=== PATIENT | male | born 1970 | race Caucasian/White ===

== ENCOUNTER 2016-12-04 10:26 | Emergency (ER) | payer SELFPAY ==
[~2016-12-04] VITALS: Ht 177.8 cm; Wt 72.7 kg
[~2016-12-04 10:26] MED LIST: CHLO25CA PO; LORTA5 PO; RANI150 PO; Z.0.NO CURRENT MEDS
[2016-12-04 10:31] VITALS: BP 135/75; PULSE 71; RESP 15; TEMP 98.2; O2SAT 98
--- NOTE | 2016-12-04 13:22 | RADHPO ---
EXAM DATE/TIME: 12/04/2016 12:56 [place] COMPARISON: No previous studies available for comparison. INDICATIONS : Hand pain. MEDICAL HISTORY : None. SURGICAL HISTORY : None. ENCOUNTER: Initial ACUITY: 1 week PAIN SCORE: 2/10 LOCATION: Left 4th digit FINDINGS: 3 views of the left hand fourth digit demonstrate no fracture or dislocation. Mineralization is withi n normal limits. There is a 6 mm sclerotic area along the lateral aspect of the fourth digit proximal phalanx. There is a similar-appearing area of sclerosis in the second digit distal phalanx. No soft tissue abnormality or radiopaque foreign body is identified. CONCLUSION: No acute left hand abnormality is identified. No radiopaque foreign body is seen. There are nonspecif ic but benign appearing areas of sclerosis in the first digit and fourth digit. Blanco Grossman MD on December 04, 2016 at 13:19 Board Certified Radiologist. This report was verified electronically.
[2016-12-04] MEDS ORDERED: CLIN1CAP6 PO (13:28)
--- NOTE | 2016-12-04 13:29 | PD ---
HPI Chief Complaint: Foreign Body Time Seen by Provider: 11:20 Travel History International Travel<30 days: No Contact w/Intl Traveler<30days: No Traveled to known affect area: No History of Present Illness HPI 46-year-old male presents emergency Department with chief complaint of left ring finger pain and swelling for 3 weeks. He reports that apparently 3 weeks ago he was building a fence and felt something sharp potentially poked his finger. He does not recall a specific wound. He reports that since that time the finger has become increasingly more painful and swollen. He has not had it evaluated until today. He has full range of motion of the finger. Although full extension is painful. The extremity is neurovascularly intact. There is no area of fluctuance. Patient denies fever, chills, nausea or vomiting. PFSH Past Medical History Medical History: Denies Significant Hx Diminished Hearing: No ?: Not Past Surgical History Cholecystectomy: Yes (JUL 2010) Oral Surgery: Yes (2009--- [employer]) Tonsillectomy: Yes Other Surgery: Yes Social History Alcohol Use: No (DENIES) Tobacco Use: Yes (1PPD) Substance Use: No (DENIES) Allergies-Medications (Allergen,Severity, Reaction): Coded Allergies: No Known Allergies (Verified , 12/04/16) Reported Meds & Prescriptions Reported Meds & Active Scripts Active Clindamycin (Clindamycin HCl) 300 Mg Cap 300 Mg PO Q6H Review of Systems Except as stated in HPI: all other systems reviewed are Neg Physical Exam Narrative GENERAL: Well-nourished, well-developed patient. SKIN: Focused skin assessment warm/dry. Mild erythema to the left ring finger on both the dorsal and volar aspect. HEAD: Normocephalic. EYES: No scleral icterus. No injection or drainage. NECK: Supple, trachea midline. No JVD or lymphadenopathy. CARDIOVASCULAR: Regular rate and rhythm without murmurs, gallops, or rubs. RESPIRATORY: Breath sounds equal bilaterally. No accessory muscle use. GASTROINTESTINAL: Abdomen soft, non-tender, nondistended. MUSCULOSKELETAL: No cyanosis. Left ring finger has moderate swelling and mild erythema to the dorsal and volar aspect. There is no area of fluctuance. Patient has full range of motion of the digit. BACK: Nontender without obvious deformity. No CVA tenderness. Data Data Last Documented VS Vital Signs Date Time Temp Pulse Resp B/P Pulse Ox O2 Delivery O2 Flow Rate FiO2 12/04/16 10:31 98.2 71 15 135/75 98 Orders Finger (Asi6iot) (12/04/16 ) Splint Or Brace Apply/Monitor (12/04/16 13:32) Finger Splint (12/04/16 ) MDM Medical Decision Making Medical Screen Exam Complete: Yes Emergency Medical Condition: Yes Medical Record Reviewed: Yes Differential Diagnosis Possible Retained foreign body, cellulitis of the finger, infectious tenosynovitis Narrative Course 46-year-old male presents emergency department for evaluation of left ring finger pain and swelling for 3 weeks. He reports that he possibly has a retained splinter. The digit is moderately swollen but only mildly arithmetic. There is no area of fluctuance. He has full range of motion with only mild pain with extension. Infectious tenosynovitis was considered but does not appear clinically. X-ray taken of the hand ruled out fracture and no radiopaque foreign body. Patient will be placed on clindamycin and instructed to follow-up in 2 days. Patient agrees to this plan Diagnosis Primary Impression: Cellulitis Qualified Code: L03.012 - Cellulitis of finger of left hand Referrals: Ry Plummer MD Patient Instructions: Cellulitis (ED), General Instructions Scripts Clindamycin 300 Mg Fel958 Mg PO Q6H #40 CAP Ref 0 Prov:Cristy Nam 12/04/16 Disposition: 01 DISCHARGE HOME Condition: Stable Cristy Nam December 04, 2016 13:29
== END 2016-12-04 13:38 | disposition home or self-care (01) ==
LOC: PHEFT 10:26
DX: L03.012 Cellulitis of left finger (principal); F17.200 Nicotine dependence, unspecified, uncomplicated
CPT/HCPCS: 29130; 73140

== ENCOUNTER 2018-03-26 13:15 | Inpatient (IN) ==
[2018-03-26] MEDS ORDERED: Morphine Inj 4 MG/ML Vial ONE (13:19)
[2018-03-26] MEDS ORDERED: Propofol 1000 mg/100 ml Inj 1,000 MG/100 ML BOTTLE ONE (13:22)
[2018-03-26 13:38] LABS: Baso % (Auto) 0.5 % (0.0-2.0); Eos # (Auto) 0.1 th/mm3 (0.0-0.4); Eos % (Auto) 1.2 % (0.0-4.0); Hematocrit 42.3 % (39.0-51.0); Lymph % (Auto) 38.4 % (9.0-44.0); Mean Corpuscular HGB Conc 33.1 % (32.0-36.0); Mean Corpuscular Hemoglobin 31.3 pg (27.0-34.0); Mean Corpuscular Volume 94.5 fL (80.0-100.0); Mean Platelet Volume 7.3 fL (7.0-11.0); Mono # (Auto) 0.5 th/mm3 (0.0-0.9); Mono % (Auto) 6.6 % (0.0-8.0); Neut # (Auto) 4.1 th/mm3 (1.8-7.7); Neut % (Auto) 53.3 % (16.0-70.0); Platelet Count 316 th/mm3 (150-450); Red Blood Count 4.48 mil/mm3 (4.50-5.90); White Blood Count 7.7 th/mm3 (4.0-11.0)
--- NOTE | 2018-03-26 13:53 | ED ---
HPI General Chief Complaint: Fall Stated Complaint: TRAUMA ALERT Time Seen by Provider: 03/26/18 13:48 Source: patient and EMS Mode of arrival: EMS Limitations: no limitations History of Present Illness HPI narrative: 48-year-old adult male brought in as a trauma alert after fall from 15-20 feet up on a ladder climbing tree to cut down some branches. No known LOC. Pelvis right hip left wrist pain. Moving all extremities. Pain is severe, constant, nonradiating. No relief with 6 mg of IV morphine. Related Data Home Medications Medication Instructions Recorded Confirmed No Known Home Medications 03/26/18 03/26/18 Allergies Allergy/AdvReac Type Severity Reaction Status Date / Time No Allergy Information Allergy Verified 03/26/18 14:55 Available Review of Systems ROS: all other systems reviewed are negative REPLACED BY [facility] Social History Social History Recent Travel in [facility] within the Last 8 Weeks: No Recent Out of Country Travel within the Last 8 Weeks: No Exam Narrative Exam Narrative: GENERAL: Adult male, full spinal mobilization. SKIN: Focused skin assessment warm/dry. HEAD: Atraumatic. Normocephalic. EYES: Pupils equal and round. No scleral icterus. No injection or drainage. ENT: No nasal bleeding or discharge. Mucous membranes pink and moist. NECK: Trachea midline. Cervical collar in place. No obvious injuries. CARDIOVASCULAR: Regular rate and rhythm. No murmur appreciated. RESPIRATORY: No accessory muscle use. Clear to auscultation. Breath sounds equal bilaterally. GASTROINTESTINAL: Abdomen soft, non-tender, nondistended. Hepatic and splenic margins not palpable. MUSCULOSKELETAL: Obvious deformity of the left wrist. Pain and tenderness on the pubic symphysis, and apparent instability with inward pressure of the pelvis. NEUROLOGICAL: Awake and alert. No obvious cranial nerve deficits. Motor grossly within normal limits. Normal speech. PSYCHIATRIC: Appropriate mood and affect; insight and judgment normal. Course Initial Documented Vital Signs Temperature 98.2 F 03/26/18 14:20 Pulse Rate 72 03/26/18 14:20 Respiratory Rate 18 03/26/18 14:20 Blood Pressure 124/72 03/26/18 14:20 Pulse Oximetry 96 03/26/18 14:20 Last Documented Vital Signs Temperature 98.2 F 03/26/18 14:20 Pulse Rate 72 03/26/18 14:20 Respiratory Rate 18 03/26/18 14:20 Blood Pressure 124/72 03/26/18 14:20 Pulse Oximetry 98 03/26/18 14:58 Critical Care Time Critical Care Time: Yes Total Critical Care Time: 35 Attestation: Aggregate critical care time was [-] minutes. Time to perform other separately billable procedures was not included in the critical care time. My time did not include minutes spent treating any other patients simultaneously or on activities that did not directly contribute to the patient' s treatment. The services I provided to this patient were to treat and/or prevent clinically significant deterioration that could result in: , disability, recognized hemorrhage, shock, permanent disability and the fractured left wrist, other. I provided critical care services requiring my management, as noted below: Chart data review, documentation time, medication orders and management, vital sign assessments/reviewing monitor data, ordering and reviewing lab tests, ordering and interpreting/reviewing x-rays and diagnostic studies, care of the patient and discussion of the patient with the admitting physicians. Medical Decision Making MDM Narrative Medical decision making narrative: 48-year-old man, fall from a height, left wrist injury, splinted in the ED trauma bay with some procedural sedation, also with right hip injury. Concern for pelvic fracture initially given clinical instability on exam. X-ray shows what appears to be inferior superior pubic rami fractures, possible femoral neck fracture. Will be taken to CT scan. Likely admission. Pain was improved with morphine, and with splinting of the left wrist. Medical Screen Exam Complete: Yes Emergency Medical Condition: Yes Lab Data Result diagrams: 03/26/18 13:25 Lab Results 03/26/18 03/26/18 03/26/18 Range/Units 13:25 13:25 13:25 WBC 7.7 (4.0-11.0) th/mm3 RBC 4.48 L (4.50-5.90) mil/mm3 Hgb 14.0 (13.0-17.0) gm/dL POC Hgb (Calc) 14.3 (13.0-17.0) g/dL Hct 42.3 (39.0-51.0) % POC Hct 42.0 (39-51.0) % MCV 94.5 (80.0-100.0) fL MCH 31.3 (27.0-34.0) pg MCHC 33.1 (32.0-36.0) % RDW 14.0 (11.6-17.2) % Plt Count 316 (150-450) th/mm3 MPV 7.3 (7.0-11.0) fL Neut % (Auto) 53.3 (16.0-70.0) % Lymph % (Auto) 38.4 (9.0-44.0) % [place] % (Auto) 6.6 (0.0-8.0) % Eos % (Auto) 1.2 (0.0-4.0) % Baso % (Auto) 0.5 (0.0-2.0) % Neut # (Auto) 4.1 (1.8-7.7) th/mm3 Lymph # (Auto) 3.0 (1.0-4.8) th/mm3 [place] # (Auto) 0.5 (0.0-0.9) th/mm3 Eos # (Auto) 0.1 (0.0-0.4) th/mm3 Baso # (Auto) 0.0 (0.0-0.2) th/mm3 WBC Differential . Differential Comment Auto diff final PT 10.1 (9.8-11.6) sec INR 1.0 Ratio APTT 20.3 L (24.3-30.1) sec POC Sodium 142 (137-144) mmol/L POC Potassium 3.8 (3.6-5.0) mmol/L POC Chloride 104 (102-111) mmol/L POC BUN 13 (5-21) mg/dL POC Creatinine 1.4 H (0.6-1.3) mg/dL POC Glucose 111 H (68-110) mg/dL Blood Type Antibody Screen 03/26/18 Range/Units 13:25 WBC (4.0-11.0) th/mm3 RBC (4.50-5.90) mil/mm3 Hgb (13.0-17.0) gm/dL POC Hgb (Calc) (13.0-17.0) g/dL Hct (39.0-51.0) % POC Hct (39-51.0) % MCV (80.0-100.0) fL MCH (27.0-34.0) pg MCHC (32.0-36.0) % RDW (11.6-17.2) % Plt Count (150-450) th/mm3 MPV (7.0-11.0) fL Neut % (Auto) (16.0-70.0) % Lymph % (Auto) (9.0-44.0) % [place] % (Auto) (0.0-8.0) % Eos % (Auto) (0.0-4.0) % Baso % (Auto) (0.0-2.0) % Neut # (Auto) (1.8-7.7) th/mm3 Lymph # (Auto) (1.0-4.8) th/mm3 [place] # (Auto) (0.0-0.9) th/mm3 Eos # (Auto) (0.0-0.4) th/mm3 Baso # (Auto) (0.0-0.2) th/mm3 WBC Differential Differential Comment PT (9.8-11.6) sec INR Ratio APTT (24.3-30.1) sec POC Sodium (137-144) mmol/L POC Potassium (3.6-5.0) mmol/L POC Chloride (102-111) mmol/L POC BUN (5-21) mg/dL POC Creatinine (0.6-1.3) mg/dL POC Glucose (68-110) mg/dL Blood Type A Positive Antibody Screen Negative Imaging Data Attestation: I personally reviewed and interpreted this imaging study as follows : My impression: My review of chest x-ray: Negative My review of left wrist x-ray: Distal radius fracture with displacement My review of AP pelvis x-ray: Inferior and superior right-sided pubic rami fractures, possible femoral neck fracture Radiologist's impression: Wrist X-Ray 03/26/18 00:00 CONCLUSION: Comminuted fracture of both the distal radius and the ulna. Chest X-Ray 03/26/18 13:16 CONCLUSION: Negative examination. Pelvis X-Ray 03/26/18 13:16 CONCLUSION: Fractures of the right superior and inferior pubic ramus. There may be some widening the right SI joint compared to the left although not sure it is NOT secondary to rotation Abdomen/Pelvis CT 03/26/18 13:29 CONCLUSION: 1. Fracture of the superior and inferior pubic rami on the right. The superior fracture abuts the bladder but does not cause any obvious extravasation or active bleeding. Parasagittal fracture through the right ischium. The some mild thickening involving the right obturator internus muscle likely hemorrhage. Solid organs of the abdomen are unremarkable Chest CT 03/26/18 13:29 CONCLUSION: 1. Negative CT Chest with contrast. Head CT 03/26/18 13:29 CONCLUSION: 1. Negative CT Head non contrast. . Lumbar Spine CT 03/26/18 13:29 CONCLUSION: 1. Right posterior pelvic fracture. The lumbar spine is unremarkable. Thoracic Spine CT 03/26/18 13:29 CONCLUSION: 1. Negative CT Thoracic Spine with contrast. Cervical Spine CT 03/26/18 13:30 CONCLUSION: 1. Mild anterolisthesis of C3 on C4. No evidence of fracture or malalignment Wrist X-Ray 03/26/18 13:30 CONCLUSION: Fracture been reduced with now nearly anatomic alignment. Discharge Plan Discharge Disposition Patient Disposition: 30 Still Patient Physicians Team ED Provider: Jah Galindo Attending Provider: Scott Vizcarra Status ED Status: Admitted Patient
[2018-03-26 13:54] LABS: Activated Partial Thrombo Time 20.3 sec (24.3-30.1); Prothrombin Time 10.1 sec (9.8-11.6)
--- NOTE | 2018-03-26 14:01 | XR ---
EXAM DATE: 03/26/2018 1:58 PM EDT AGE/SEX: 89 years / Male INDICATIONS: Trauma Alert. Fall from tree. CLINICAL DATA: This is the patient's initial encounter. Patient reports that signs and symptoms have been present for 1 day and indicates a pain score of Nonresponsive. MEDICAL/SURGICAL HISTORY: Non-responsive. Non-responsive. COMPARISON: No prior exams available for comparison. FINDINGS: Examination of the pelvis demonstrates an oblique fracture through the right pubic ramus medially. I believe the inferior pubic ramus on the right is also fractured. Rounded metallic object overlies the left hemiscrotum likely external to the patient CONCLUSION: Fractures of the right superior and inferior pubic ramus. There may be some widening the right SI rustam nt compared to the left although not sure it is NOT secondary to rotation Electronically signed by: Jah Davis MD 03/26/2018 1:59 PM EDT
--- NOTE | 2018-03-26 14:02 | XR ---
EXAM DATE: 03/26/2018 1:59 PM EDT AGE/SEX: 89 years / Male INDICATIONS: Trauma Alert. Fall from tree. Post reduction. CLINICAL DATA: This is the patient's initial encounter. Patient reports that signs and symptoms have been present for 1 day and indicates a pain score of Nonresponsive. MEDICAL/SURGICAL HISTORY: Non-responsive. Non-responsive. [place] [facility] [place]. . FINDINGS: There is a comminuted impacted fracture of the distal radius which has been reduced. It is in much be tter alignment than the previous study. The radiocarpal joint is now preserved. The ulnar styloid fra cture is nondisplaced. CONCLUSION: Fracture been reduced with now nearly anatomic alignment. Electronically signed by: Jah Davis MD 03/26/2018 2:00 PM EDT
--- NOTE | 2018-03-26 14:03 | XR ---
EXAM DATE: 03/26/2018 1:57 PM EDT AGE/SEX: 89 years / Male INDICATIONS: Trauma Alert. Fall from tree. CLINICAL DATA: This is the patient's initial encounter. Patient reports that signs and symptoms have been present for 1 day and indicates a pain score of Nonresponsive. MEDICAL/SURGICAL HISTORY: Non-responsive. Non-responsive. COMPARISON: No prior exams available for comparison. FINDINGS: A single AP view of the chest demonstrates the lungs to be symmetrically aerated without evidence of mass, infiltrate or effusion. The cardiomediastinal contours are unremarkable. Osseous structures a re intact. CONCLUSION: Negative examination. Electronically signed by: Jah Davis MD 03/26/2018 2:02 PM EDT
--- NOTE | 2018-03-26 14:06 | CT ---
EXAM DATE: 03/26/2018 2:03 PM EDT AGE/SEX: 89 years / Male INDICATIONS: Trauma alert, fall from tree. CLINICAL DATA: This is the patient's initial encounter. Patient reports that signs and symptoms have been present for 1 day and indicates a pain score of Nonresponsive. MEDICAL/SURGICAL HISTORY: Non-responsive. Non-responsive. RADIATION DOSE: 64.36 CTDI (mGy) COMPARISON: No prior exams available for comparison. TECHNIQUE: CT of the head without contrast. Using automated exposure control and adjustment of the mA and/or kV according to patient size, radiation dose was kept as low as reasonably achievable to ob tain optimal diagnostic quality images. DICOM format image data is available electronically for revi ew and comparison. FINDINGS: Cerebrum: The ventricles are normal for age. No evidence of midline shift, mass lesion, hemorrhage or acute infarction. No extraaxial fluid collections are seen. Posterior Fossa: The cerebellum and brainstem are intact. The 4th ventricle is midline. The cerebe llopontine angle is unremarkable. Extracranial: The visualized portion of the orbits is intact. Skull: The calvaria is intact. No evidence of skull fracture. CONCLUSION: 1. Negative CT Head non contrast. . Electronically signed by: Jah Davis MD 03/26/2018 2:05 PM EDT
--- NOTE | 2018-03-26 14:08 | CT ---
EXAM DATE: 03/26/2018 2:04 PM EDT AGE/SEX: 89 years / Male INDICATIONS: Trauma alert, fall from tree. CLINICAL DATA: This is the patient's initial encounter. Patient reports that signs and symptoms have been present for 1 day and indicates a pain score of Nonresponsive. MEDICAL/SURGICAL HISTORY: Non-responsive. Non-responsive. RADIATION DOSE: 12.96 CTDI (mGy) ; Combined studies COMPARISON: No prior exams available for comparison. TECHNIQUE: Multiple contiguous axial images were obtained through the chest during bolus infusion of 96 ml Omnipaque 350 (iohexol) nonionic water-soluble contrast as a cumulative dose for multiple exa ms. Images were obtained in suspended respiration using multiple row detector helical technique. U sing automated exposure control and adjustment of the mA and/or kV according to patient size, radiati on dose was kept as low as reasonably achievable to obtain optimal diagnostic quality images. DICOM format image data is available electronically for review and comparison. FINDINGS: Lungs: The lungs are symmetrically aerated. No infiltrates or nodular densities are seen. Mediastinum: There is good visualization of the great vessels of the middle mediastinum. No evidenc e of mediastinal or hilar adenopathy/mass. Pleurae: No evidence of focal thickening or pleural effusion. Axillae: Unremarkable. Bony Structures: Unremarkable. Miscellaneous: The examination was extended to include the upper abdomen, and both adrenal glands ar e normal in size and configuration. CONCLUSION: 1. Negative CT Chest with contrast. Electronically signed by: Jah Davis MD 03/26/2018 2:07 PM EDT
--- NOTE | 2018-03-26 14:13 | CT ---
EXAM DATE: 03/26/2018 2:05 PM EDT AGE/SEX: 89 years / Male INDICATIONS: Trauma alert, fall from tree. CLINICAL DATA: This is the patient's initial encounter. Patient reports that signs and symptoms have been present for 1 day and indicates a pain score of Nonresponsive. MEDICAL/SURGICAL HISTORY: Non-responsive. Non-responsive. ORAL CONTRAST: No oral contrast ingested. RADIATION DOSE: 12.56 CTDI (mGy) ; Combined studies COMPARISON: No prior exams available for comparison. TECHNIQUE: Multiple contiguous axial images were obtained through the abdomen and pelvis following b olus infusion of 96 ml Omnipaque 350 (iohexol) nonionic water-soluble contrast as a single exam dos e. No oral contrast ingested. Using automated exposure control and adjustment of the mA and/or kV ac cording to patient size, radiation dose was kept as low as reasonably achievable to obtain optimal di agnostic quality images. DICOM format image data is available electronically for review and comparis on. FINDINGS: Lower Lungs: The visualized lower lungs are clear. Liver: The liver has a homogeneous density without space-occupying lesion. There is no dilation of th e biliary tree. Cholecystectomy clips Spleen: Homogeneous density without enlargement. Pancreas: Unremarkable without mass or calcification. Kidneys: Normal in size and shape. No evidence of mass or hydronephrosis. Adrenal Glands: Unremarkable. Aorta: The aorta and proximal iliac vessels are grossly unremarkable without aneurysmal dilation. Bowel/Mesentery: The bowel loops are grossly unremarkable. The cecum and sigmoid colon have a normal configuration. Abdominal Wall: Intact. Retroperitoneum: No evidence of adenopathy in the retrocrural, para-aortic, or deep pelvic regions. Bladder: Contours are smooth. Delayed images were performed through the bladder. There is no evidenc e of leak or extravasation Reproductive Organs: No abnormal masses or calcifications seen. Inguinal: The inguinal region is unremarkable without evidence of adenopathy. Bony Structures: There is an oblique fracture through the right pubic symphysis superiorly. Small hernandez rrounding hematoma. It abuts but does not displace the bladder. There is a fracture of the inferior p ubic ramus posteriorly. There is a parasagittal fracture through the right ischium without significa nt widening of the SI joint. Bone island in the right femoral neck CONCLUSION: 1. Fracture of the superior and inferior pubic rami on the right. The superior fracture abuts the bl adder but does not cause any obvious extravasation or active bleeding. Parasagittal fracture through the right ischium. The some mild thickening involving the right obturator internus muscle likely hemo rrhage. Solid organs of the abdomen are unremarkable Electronically signed by: Jah Davis MD 03/26/2018 2:12 PM EDT
--- NOTE | 2018-03-26 14:15 | CT ---
EXAM DATE: 03/26/2018 2:07 PM EDT AGE/SEX: 89 years / Male INDICATIONS: Trauma alert, fall from tree. CLINICAL DATA: This is the patient's initial encounter. Patient reports that signs and symptoms have been present for 1 day and indicates a pain score of Nonresponsive. MEDICAL/SURGICAL HISTORY: Non-responsive. Non-responsive. RADIATION DOSE: 19.65 CTDI (mGy) COMPARISON: [facility] – [place] THORACIC SPINE W CONTRAST, 03/26/2018. . TECHNIQUE: Contiguous axial images were obtained using helical multirow detector technique. The vol umetric data was post-processed with multiplanar reconstruction in oblique axial, sagittal, and coron al planes. Using automated exposure control and adjustment of the mA and/or kV according to patient s ize, radiation dose was kept as low as reasonably achievable to obtain optimal diagnostic quality maria victoria ges. DICOM format image data is available electronically for review and comparison. FINDINGS: Vertebrae: Normal vertebral body height. Alignment: Normal. No subluxation. C2-3: The bony spinal canal is normal in size. No evidence of disc bulge or herniation. The neural foramina are bilaterally patent. C3-4: Mild anterolisthesis of C3 on C4 The bony spinal canal is normal in size. No evidence of disc bulge or herniation. The neural foramina are bilaterally patent. C4-5: The bony spinal canal is normal in size. No evidence of disc bulge or herniation. The neural foramina are bilaterally patent. C5-6: The bony spinal canal is normal in size. No evidence of disc bulge or herniation. The neural foramina are bilaterally patent. C6-7: The bony spinal canal is normal in size. No evidence of disc bulge or herniation. The neural foramina are bilaterally patent. C7-T1: The bony spinal canal is normal in size. No evidence of disc bulge or herniation. The neura l foramina are bilaterally patent. CONCLUSION: 1. Mild anterolisthesis of C3 on C4. No evidence of fracture or malalignment Electronically signed by: Jah Davis MD 03/26/2018 2:14 PM EDT
--- NOTE | 2018-03-26 14:20 | XR ---
EXAM DATE: 03/26/2018 2:01 PM EDT AGE/SEX: 89 years / Male INDICATIONS: Trauma Alert. Fall from tree. CLINICAL DATA: This is the patient's initial encounter. Patient reports that signs and symptoms have been present for 1 day and indicates a pain score of Nonresponsive. MEDICAL/SURGICAL HISTORY: Non-responsive. Non-responsive. COMPARISON: No prior exams available for comparison. FINDINGS: There is a markedly comminuted fracture of the distal radius. There is a fracture of the ulnar styloi d. What I see of the carpal bones are intact. The metacarpal bases are intact. CONCLUSION: Comminuted fracture of both the distal radius and the ulna. Electronically signed by: Jah Davis MD 03/26/2018 2:18 PM EDT
--- NOTE | 2018-03-26 14:23 | CT ---
EXAM DATE: 03/26/2018 2:17 PM EDT AGE/SEX: 89 years / Male INDICATIONS: Trauma alert, fall from tree. CLINICAL DATA: This is the patient's initial encounter. Patient reports that signs and symptoms have been present for 1 day and indicates a pain score of Nonresponsive. MEDICAL/SURGICAL HISTORY: Non-responsive. Non-responsive. RADIATION DOSE: . CTDI (mGy) ; Reconstructed from previous dataset, no dose COMPARISON: [facility] [place] CERV[place] W/O CONTRAST, 03/26/2018. . TECHNIQUE: Contiguous axial images were acquired using a multirow detector CT scanner after intraven ous administration of 96 ml Omnipaque 350 (iohexol) nonionic water-soluble contrast as a cumulative dose for multiple exams. Multiplanar reconstruction in the sagittal and coronal planes was performe d. Using automated exposure control and adjustment of the mA and/or kV according to patient size, ra diation dose was kept as low as reasonably achievable to obtain optimal diagnostic quality images. D ICOM format image data is available electronically for review and comparison. FINDINGS: Vertebrae: Normal vertebral body height. Alignment: Normal. No subluxation. Post Contrast: No abnormal areas of enhancement are seen in the cord, dural or paraspinal regions. T1 - T2: Normal. T2 - T3: The thecal sac has a normal diameter. No evidence of disc bulge or protrusion. T3 - T4: The thecal sac has a normal diameter. No evidence of disc bulge or protrusion. T4 - T5: The thecal sac has a normal diameter. No evidence of disc bulge or protrusion. T5 - T6: The thecal sac has a normal diameter. No evidence of disc bulge or protrusion. T6 - T7: The thecal sac has a normal diameter. No evidence of disc bulge or protrusion. T7 - T8: The thecal sac has a normal diameter. No evidence of disc bulge or protrusion. T8 - T9: The thecal sac has a normal diameter. No evidence of disc bulge or protrusion. T9 - T10: The thecal sac has a normal diameter. No evidence of disc bulge or protrusion. T10 - T11: The thecal sac has a normal diameter. No evidence of disc bulge or protrusion. T11 - T12: The thecal sac has a normal diameter. No evidence of disc bulge or protrusion. T12 - L1: The thecal sac has a normal diameter. No evidence of disc bulge or protrusion. CONCLUSION: 1. Negative CT Thoracic Spine with contrast. Electronically signed by: Jah Davis MD 03/26/2018 2:22 PM EDT
--- NOTE | 2018-03-26 14:25 | CT ---
EXAM DATE: 03/26/2018 2:17 PM EDT AGE/SEX: 89 years / Male INDICATIONS: Trauma alert, fall from tree. CLINICAL DATA: This is the patient's initial encounter. Patient reports that signs and symptoms have been present for 1 day and indicates a pain score of Nonresponsive. MEDICAL/SURGICAL HISTORY: Non-responsive. Non-responsive. RADIATION DOSE: . CTDI (mGy) ; Reconstructed from previous dataset, no dose COMPARISON: [facility] – [place], [place] CERVICAL SPINE W/O CONTRAST, 03/26/2018. . TECHNIQUE: Contiguous axial images were acquired with a multirow detector CT scanner after intraveno us administration of 96 ml Omnipaque 350 (iohexol) nonionic water-soluble contrast as a cumulative d ose for multiple exams. Multiplanar reconstructions in the sagittal and coronal plane were also perf ormed. Using automated exposure control and adjustment of the mA and/or kV according to patient size, radiation dose was kept as low as reasonably achievable to obtain optimal diagnostic quality images. DICOM format image data is available electronically for review and comparison. FINDINGS: Vertebrae: Normal vertebral body height. There is a parasagittal fracture through the right sacral a la in the right ischium. It travels through the right SI joint but I don't believe the joint is actua lly widened or displaced Alignment: Normal. No subluxation. Post Contrast: No abnormal areas of enhancement are seen in the cord, dural or paraspinal regions. T12-L1: The thecal sac has a normal diameter. No evidence of disc bulge or protrusion. The neural foramina are patent bilaterally. L1-L2: The thecal sac has a normal diameter. No evidence of disc bulge or protrusion. The neural f oramina are patent bilaterally. L2-L3: The thecal sac has a normal diameter. No evidence of disc bulge or protrusion. The neural f oramina are patent bilaterally. L3-L4: The thecal sac has a normal diameter. Mild diffuse annular bulge. No evidence of disc protrus ion. The neural foramina are patent bilaterally. L4-L5: The thecal sac has a normal diameter. Mild diffuse annular bulge No evidence of disc protrus ion. The neural foramina are patent bilaterally. L5-S1: The thecal sac has a normal diameter. No evidence of disc bulge or protrusion. The neural f oramina are patent bilaterally. CONCLUSION: 1. Right posterior pelvic fracture. The lumbar spine is unremarkable. Electronically signed by: Jah Davis MD 03/26/2018 2:24 PM EDT
[2018-03-26] MEDS ORDERED: HYDROmorphone PF Inj 2 MG/ML Vial IV.PUSH ONE (14:39)
[2018-03-26] MEDS: Sod Chloride 0.9% Inj 1,000 ML IV.CONT SCH (16:03)
[2018-03-26] MEDS ORDERED: Lidocaine PF 2% Inj 10 ML Ampul ONE (17:00)
[2018-03-26] MEDS: Senna/Docusate Sodium 8.6/50 MG Tablet PO SCH (20:21)
[2018-03-26] MEDS: Famotidine 20 MG Tablet PO SCH (20:21)
[2018-03-26] MEDS: Morphine Inj 4 MG/ML Vial IV.PUSH PRN (20:21)
[2018-03-27] MEDS: Morphine Inj 4 MG/ML Vial IV.PUSH PRN ×2 (03:47→07:36)
[2018-03-27] MEDS: Sod Chloride 0.9% Inj 1,000 ML IV.CONT SCH (03:50)
[2018-03-27] MEDS ORDERED: Chlorhexidine Gluconate 2% 1 Pack (2 Cloths) TOPICAL ONE (05:16)
[2018-03-27 05:29] LABS: Baso % (Auto) 0.5 % (0.0-2.0); Eos # (Auto) 0.1 th/mm3 (0.0-0.4); Eos % (Auto) 1.6 % (0.0-4.0); Hemoglobin 11.8 gm/dL (13.0-17.0); Lymph # (Auto) 1.6 th/mm3 (1.0-4.8); Lymph % (Auto) 24.1 % (9.0-44.0); Mean Corpuscular HGB Conc 33.8 % (32.0-36.0); Mean Corpuscular Hemoglobin 31.8 pg (27.0-34.0); Mean Corpuscular Volume 94.2 fL (80.0-100.0); Mean Platelet Volume 7.4 fL (7.0-11.0); Mono # (Auto) 0.6 th/mm3 (0.0-0.9); Mono % (Auto) 8.8 % (0.0-8.0); Neut # (Auto) 4.3 th/mm3 (1.8-7.7); Platelet Count 199 th/mm3 (150-450); Red Blood Count 3.72 mil/mm3 (4.50-5.90); Red Cell Distribution Width 13.9 % (11.6-17.2); White Blood Count 6.6 th/mm3 (4.0-11.0)
[2018-03-27 05:56] LABS: Anion Gap 9 meq/L (5-15); Blood Urea Nitrogen 11 mg/dL (7-18); Calcium 7.5 mg/dL (8.5-10.1); Carbon Dioxide 26.2 meq/L (21.0-32.0); Chloride 104 meq/L (98-107); Glomerular Filtration Rate Greater Than 89 mL/min (>89); Glucose,Random 95 mg/dL (74-106); Potassium 3.7 meq/L (3.5-5.1); Sodium 139 meq/L (136-145)
[2018-03-27] MEDS ORDERED: Sodium Chlor 0.9% Inj 500 ML IV.SIG SCH (06:00)
--- NOTE | 2018-03-27 08:25 | XR ---
EXAM DATE: 03/27/2018 8:14 AM EDT AGE/SEX: 48 years / Male INDICATIONS: Left shoulder pain post fall from ladder yesterday resulting in left wrist & pubic rami fractures. CLINICAL DATA: This is the patient's subsequent encounter. Patient reports that signs and symptoms h ave been present for 2 days and indicates a pain score of 6/10. MEDICAL/SURGICAL HISTORY: . Left wrist & pubic rami fractures. Cholecystectomy. Tonsillectomy . COMPARISON: No prior exams available for comparison. FINDINGS: There is no acute fracture or dislocation. Mild degenerative changes are noted involving the left acr omioclavicular joint. CONCLUSION: 1. No acute fracture or dislocation. 2. Mild degenerative changes involving the left acromioclavicular joint. Electronically signed by: Natalio Alexis MD 03/27/2018 8:24 AM EDT
[2018-03-27] MEDS ORDERED: Bupivacaine/Epinephrine Inj 0.25% 50 ML Vial ONE (08:28)
--- NOTE | 2018-03-27 08:45 | P.CONOP ---
[facility] Orthopedics Consult Note - [facility] Consult date: 03/27/18 Chief complaint: pubic rami fractures, Left wrist factures Narrative: 48-year-old adult male brought in as a trauma alert after fall from 15-20 feet up on a ladder climbing tree to cut down some branches. No known LOC. Pelvis right hip left wrist pain. Pain is severe, constant, nonradiating. Ambulating increases pain significantly. He has some mild numbness about the left hand fingers. The patient did have a previous carpal tunnel release. The patient was found to have multiple pelvic fractures on the right side and a significantly displaced distal radius fracture on the left side. The patient had a closed reduction in the emergency room along with splinting. He was admitted to the hospital. The patient was complaining about left shoulder pain as well. He does have a history of pain from rotator cuff issues in the left shoulder prior to this injury. He feels like this is been exacerbated. No x- ray of the shoulder had been taking when I saw the patient. His medical history is positive for alcohol abuse. The patient just started drinking again recently. Family history: His mother has diabetes. Multiple family members have significant alcohol abuse issues. Review of Systems All other systems reviewed negative except as stated in [facility] PMF[facility] - History History Provided By: Patient - Medical History Medical History: Medical History (Last Reviewed 03/27/18 @ 08:39 by Con Segal MD) FH: cholecystectomy - Surgical History Surgical History: Surgical History (Last Reviewed 03/27/18 @ 08:39 by Con Segal MD) History of tonsillectomy - Tobacco History Second Hand Smoke Exposure: No Tobacco Use In Past 30 Days: No Smoking Status: Never smoker - Alcohol History How Often Do You Have a Drink Containing Alcohol: 4 or more times a week - Substance Use History Substance History: No History of Abuse - Travel History Recent Travel in the [place] Within the Last 8 Weeks: No Recent Travel Out of the Country Within the Last 8 Weeks: No - Immunization History Tetanus Immunization: Unsure Hx Influenza Vaccine This Season: No Medications and Allergies Active Medications: Active Medications Albuterol (Duoneb Neb (Prn)) 1 ampul NEB Q2HR NEB PRN PRN Reason: SHORTNESS OF BREATH Cyclobenzaprine HCl (Flexeril) 5 mg PO Q8HR [facility] Last Admin: 03/27/18 07:34 Dose: 5 mg Enalaprilat (Vasotec Inj) 1.25 mg IV.PUSH Q8H PRN PRN Reason: Blood pressure 180/95 Famotidine (Pepcid) 20 mg PO BID [facility] Last Admin: 03/26/18 20:21 Dose: 20 mg Sodium Chloride (Ns Inj) 1,000 mls @ 84 mls/hr IV.CONT .[id number] [facility] Last Admin: 03/27/18 03:50 Dose: 84 mls/hr Acetaminophen (Ofirmev Inj) 1,000 mg in 100 mls @ 400 mls/hr IV.SIG Q6H [facility] Stop: 03/27/18 11:14 Last Admin: 03/27/18 05:54 Dose: 400 mls/hr Lactated Ringer's (Lr 1000 Ml Inj) 1,000 mls @ 30 mls/hr IV.SIG .Q24H [facility] Stop: 03/28/18 05:29 Sodium Chloride (Ns Inj) 500 mls @ 30 mls/hr IV.SIG .Q10H [facility] Lactulose (Lactulose Liq) 30 ml PO DAILY PRN PRN Reason: CONSTIPATION Morphine Sulfate (Morphine Inj) 4 mg IV.PUSH Q3HR PRN PRN Reason: BREAKTHROUGH PAIN Last Admin: 03/27/18 07:36 Dose: 4 mg Ondansetron HCl (Zofran Inj) 4 mg IV.PUSH Q6H PRN PRN Reason: NAUSEA OR VOMITING Oxycodone HCl (Roxicodone) 10 mg PO Q4H PRN PRN Reason: Pain 6-10 Last Admin: 03/26/18 22:29 Dose: 10 mg Oxycodone HCl (Roxicodone) 5 mg PO Q4H PRN PRN Reason: Pain 1-5 Senna/Docusate Sodium (April-Colace) 1 tab PO BID [facility] Last Admin: 03/26/18 20:21 Dose: 1 tab Sodium Chloride (Ns Flush) 2 ml IV.FLUSH UNSCH PRN PRN Reason: FLUSH AFTER USING IV ACCESS Last Admin: 03/27/18 07:36 Dose: 2 ml Sodium Chloride (Ns Flush) 2 ml IV.FLUSH BID [facility] Last Admin: 03/26/18 20:20 Dose: 2 ml Allergies Allergy/AdvReac Type Severity Reaction Status Date / Time No Allergy Information Allergy Verified 03/26/18 14:55 Available Home Medications Medication Instructions Recorded Confirmed Type No Known Home Medications 03/26/18 03/26/18 History Exam Vital signs: Vital Signs 03/26/18 14:20 03/26/18 14:58 03/26/18 15:21 Temperature 98.2 F Pulse Rate 73 Respiratory Rate 21 18 Blood Pressure 124/72 Pulse Oximetry 96 98 03/26/18 16:17 03/26/18 17:00 03/26/18 19:39 Temperature 97.7 F Pulse Rate 68 Respiratory Rate 10 L 19 Blood Pressure 130/79 Pulse Oximetry 98 97 03/26/18 20:18 03/26/18 20:26 03/26/18 22:28 Temperature 98.4 F Pulse Rate 73 Respiratory Rate 18 18 18 Blood Pressure 167/72 H Pulse Oximetry 95 03/27/18 00:09 03/27/18 03:30 Temperature 98.3 F 98.3 F Pulse Rate 71 70 Respiratory Rate 18 18 Blood Pressure 148/65 H 154/67 H Pulse Oximetry 96 96 Intake & Output 03/26/18 03/27/18 03/27/18 18:59 06:59 18:59 Intake Total 100 / 100 1435 / 1435 Output Total 350 / 350 Balance 100 / 100 1085 / 1085 Weight 74.843 kg Intake: IV 100 / 100 955 / 955 NS Inj 1,000 ML @ 84 mls/hr IV. 855 / 855 CONT .[id number] [facility] Rx#:[id number] Ofirmev Inj 1,000 mg In 100 ml 100 / 100 100 / 100 @ 400 mls/hr IV.SIG Q6H [facility] Rx# :[id number] Oral 480 / 480 Output: Urine 350 / 350 Other: # Bowel Movements 0 Weight On Admission 74.843 kg Narrative: GENERAL: The patient is awake, alert and oriented x3. The patient is no significant distress. PSYCHIATRIC: Normal affect, insight, and judgment. HEENT: Head is atraumatic. Oropharynx is moist. Extraocular muscles are intact. NECK: Non-tender and supple. LUNGS: No audible wheezing. He has normal inspiratory effort with no signs of dyspnea HEART: Regular rate and rhythm. ABDOMEN: Soft, nontender, and nondistended. BACK: No CVA tenderness. EXTREMITIES/SKIN/NEURO/VASCULAR: The patient's right hip has pain with any motion. There is mild swelling. The bilateral knees have no effusions. He actively moves the toes well on both feet. There is 2+ dorsalis pedis pulse bilaterally. The left upper extremity has pain with passive motion of the left shoulder. His left upper extremity is splinted. He has brisk capillary refill of the fingers. He can move the fingers with some limitation. He had normal sensation to the median and ulnar nerves to light touch. Results - Labs Result Diagrams: 03/27/18 04:40 03/27/18 04:40 Labs: Laboratory Results - last 24 hr 03/26/18 03/26/18 03/26/18 13:25 13:25 13:25 WBC 7.7 RBC 4.48 L Hgb 14.0 POC Hgb (Calc) 14.3 Hct 42.3 POC Hct 42.0 MCV 94.5 MCH 31.3 MCHC 33.1 RDW 14.0 Plt Count 316 MPV 7.3 Neut % (Auto) 53.3 Lymph % (Auto) 38.4 [place] % (Auto) 6.6 Eos % (Auto) 1.2 Baso % (Auto) 0.5 Neut # (Auto) 4.1 Lymph # (Auto) 3.0 [place] # (Auto) 0.5 Eos # (Auto) 0.1 Baso # (Auto) 0.0 WBC Differential . Differential Comment Auto diff final PT 10.1 INR 1.0 APTT 20.3 L POC Sodium 142 Sodium POC Potassium 3.8 Potassium POC Chloride 104 Chloride Carbon Dioxide Anion Gap POC BUN 13 BUN Creatinine POC Creatinine 1.4 H Estimated GFR POC Glucose 111 H Random Glucose Calcium Blood Type Antibody Screen 03/26/18 03/27/18 03/27/18 13:25 04:40 04:40 WBC 6.6 RBC 3.72 L Hgb 11.8 L D POC Hgb (Calc) Hct 35.0 L POC Hct MCV 94.2 MCH 31.8 MCHC 33.8 RDW 13.9 Plt Count 199 D MPV 7.4 Neut % (Auto) 65.0 Lymph % (Auto) 24.1 [place] % (Auto) 8.8 H Eos % (Auto) 1.6 Baso % (Auto) 0.5 Neut # (Auto) 4.3 Lymph # (Auto) 1.6 [place] # (Auto) 0.6 Eos # (Auto) 0.1 Baso # (Auto) 0.0 WBC Differential . Differential Comment Auto diff final PT INR APTT POC Sodium Sodium 139 POC Potassium Potassium 3.7 POC Chloride Chloride 104 Carbon Dioxide 26.2 Anion Gap 9 POC BUN BUN 11 Creatinine 0.85 POC Creatinine Estimated GFR Greater than 89 POC Glucose Random Glucose 95 Calcium 7.5 L Blood Type A Positive Antibody Screen Negative - Diagnostic results Imaging: Impressions Wrist X-Ray 03/26/18 00:00 CONCLUSION: Comminuted fracture of both the distal radius and the ulna. Chest X-Ray 03/26/18 13:16 CONCLUSION: Negative examination. Pelvis X-Ray 03/26/18 13:16 CONCLUSION: Fractures of the right superior and inferior pubic ramus. There may be some widening the right SI joint compared to the left although not sure it is NOT secondary to rotation Abdomen/Pelvis CT 03/26/18 13:29 CONCLUSION: 1. Fracture of the superior and inferior pubic rami on the right. The superior fracture abuts the bladder but does not cause any obvious extravasation or active bleeding. Parasagittal fracture through the right ischium. The some mild thickening involving the right obturator internus muscle likely hemorrhage. Solid organs of the abdomen are unremarkable Chest CT 03/26/18 13:29 CONCLUSION: 1. Negative CT Chest with contrast. Head CT 03/26/18 13:29 CONCLUSION: 1. Negative CT Head non contrast. . Lumbar Spine CT 03/26/18 13:29 CONCLUSION: 1. Right posterior pelvic fracture. The lumbar spine is unremarkable. Thoracic Spine CT 03/26/18 13:29 CONCLUSION: 1. Negative CT Thoracic Spine with contrast. Cervical Spine CT 03/26/18 13:30 CONCLUSION: 1. Mild anterolisthesis of C3 on C4. No evidence of fracture or malalignment Wrist X-Ray 03/26/18 13:30 CONCLUSION: Fracture been reduced with now nearly anatomic alignment. I have reviewed the images for this radiology study. I agree with the interpretation given by the radiologist. The fracture is intra-articular There were pre-reduction x-rays showing still very significant displacement of the distal radius fracture as well. Shoulder X-Ray 03/27/18 07:10 CONCLUSION: 1. No acute fracture or dislocation. 2. Mild degenerative changes involving the left acromioclavicular joint. These are x-rays that I ordered after I saw the patient. I have reviewed the images for this radiology study. I agree with the interpretation given by the radiologist. Assessment and Plan - Assessment and Plan 48-year-old man with history of alcohol abuse. Significant fall from ladder. Left distal radius fracture comminuted, significantly displaced, intra- articular. Right sided superior and inferior pubic rami fractures with some displacement. Left shoulder contusion with possible exacerbation of underlying rotator cuff issues. We discussed that this is a serious condition effecting this patient's extremities. Nonoperative and operative options were discussed and reviewed. Potential consequences of both of these options were reviewed. I do recommend nonoperative management for now for the pelvic fractures. He will begin ambulating weight-bear as tolerated as soon as he feels comfortable. He can use a platform walker on the left side after surgery for the wrist. We discussed length of time for healing for this. We will proceed with conservative management for the left shoulder. He may require an MRI at some point to further evaluate his rotator cuff. We discussed the serious nature of his left wrist fracture. We discussed treatment options. I do recommend surgical management for this condition given the history as described in the x- rays. This is an unstable fracture pattern. He does have some numbness of the fingers but has a history of a carpal tunnel release. On his exam he did not have numbness to palpation. I would like to clinically follow the numbness. If this does not resolve with some time it is possible we may need to move forward with a revision carpal tunnel release. The patient would like to move forward with urgent surgical management for the left wrist. This is surgery should be considered non-elective, given that this patient presented emergently to the hospital, and the decision to proceed with surgery was derived from this presentation. Significantly delaying surgery ( other than for medical clearance) has the potential to adversely effect the outcome for this patient's extremity. Management of pain associated with surgery will likely require the use of parental controlled substances. The risks and benefits of surgical management have been discussed in detail. The risks of surgery include, but are not limited to, injury to nerves, blood vessels, bleeding, infection, non-healing; loss of range on motion, dysfunction or weakness of the associated joints; blood clots, pneumonia, stroke, heart attack, and . - Attending Attestation Attending Attestation: A mid level provider in my office, nurse practitioner or PA, may see this patient on a follow up basis and continue to implement the plan including: starting or adjusting medications, injections of muscle, tendons, bursa or joints, cast application, orthotic or brace application, physical therapy, further radiographic studies including X-ray, MRI, CT, ultrasound or bone scan , vascular studies, neurological studies, or other specialist consultations, and proceeding with surgical management as appropriate.
[2018-03-27] MEDS ORDERED: Sodium Chlor 0.9% Inj 250 ML ONE (09:39)
[2018-03-27] MEDS ORDERED: Lidocaine PF 1% Inj 5 ML Syringe OTHER ONE (09:45)
[2018-03-27] MEDS ORDERED: Glycopyrrolate Inj 1 MG/5 ML Syringe IV.PUSH ONE (09:45)
[2018-03-27] MEDS: Famotidine 20 MG Tablet PO SCH ×2 (09:58→20:46)
[2018-03-27] MEDS: Senna/Docusate Sodium 8.6/50 MG Tablet PO SCH ×2 (09:59→20:47)
--- NOTE | 2018-03-27 10:11 | P.PN ---
Subjective Interval history: Complains of right hip pain, reports intense pain with movement OR today with orthopedics Physical Exam Vital signs: Vital Signs 03/26/18 14:20 03/26/18 14:58 03/26/18 15:21 Temperature 98.2 F Pulse Rate 73 Respiratory Rate 21 18 Blood Pressure 124/72 Pulse Oximetry 96 98 03/26/18 16:17 03/26/18 17:00 03/26/18 19:39 Temperature 97.7 F Pulse Rate 68 Respiratory Rate 10 L 19 Blood Pressure 130/79 Pulse Oximetry 98 97 03/26/18 20:18 03/26/18 20:26 03/26/18 22:28 Temperature 98.4 F Pulse Rate 73 Respiratory Rate 18 18 18 Blood Pressure 167/72 H Pulse Oximetry 95 03/27/18 00:09 03/27/18 03:30 03/27/18 08:00 Temperature 98.3 F 98.3 F 98.7 F Pulse Rate 71 70 75 Respiratory Rate 18 18 16 Blood Pressure 148/65 H 154/67 H 159/72 H Pulse Oximetry 96 96 94 L Intake & Output 03/26/18 03/27/18 03/27/18 18:59 06:59 18:59 Intake Total 100 / 100 1535 / 1535 Output Total 350 / 350 Balance 100 / 100 1185 / 1185 Weight 74.843 kg Intake: IV 100 / 100 1055 / 1055 NS Inj 1,000 ML @ 84 mls/hr IV. 855 / 855 CONT .[id number] MARVIN Rx#:[id number] Ofirmev Inj 1,000 mg In 100 ml 100 / 100 200 / 200 @ 400 mls/hr IV.SIG Q6H [facility] Rx# :[id number] Oral 480 / 480 Output: Urine 350 / 350 Other: # Bowel Movements 0 Weight On Admission 74.843 kg Narrative: GENERAL: 48-year-old well-nourished, well developed male lying on a stretcher in no acute distress. SKIN: Warm and dry. HEAD: Normocephalic. EYES: Pupils equal and round. No scleral icterus. ENT: No nasal bleeding or discharge. Mucous membranes pink and moist. NECK: Trachea midline. No JVD. CARDIOVASCULAR: Regular rate and rhythm. RESPIRATORY: No accessory muscle use. Lungs clear to auscultation. Breath sounds equal bilaterally. GASTROINTESTINAL: Abdomen soft, non-tender, nondistended. + BS. MUSCULOSKELETAL: Extremities without cyanosis, or edema. Left arm splint in place. Limited ROM RLE. JAQUEZ, + perfused NEUROLOGICAL: Awake and alert. Normal speech. Results - Labs CBC & Chem 7: 03/28/18 04:14 03/28/18 04:14 Laboratory Results - last 24 hr 03/26/18 03/26/18 03/26/18 13:25 13:25 13:25 WBC 7.7 RBC 4.48 L Hgb 14.0 POC Hgb (Calc) 14.3 Hct 42.3 POC Hct 42.0 MCV 94.5 MCH 31.3 MCHC 33.1 RDW 14.0 Plt Count 316 MPV 7.3 Neut % (Auto) 53.3 Lymph % (Auto) 38.4 [place] % (Auto) 6.6 Eos % (Auto) 1.2 Baso % (Auto) 0.5 Neut # (Auto) 4.1 Lymph # (Auto) 3.0 [place] # (Auto) 0.5 Eos # (Auto) 0.1 Baso # (Auto) 0.0 WBC Differential . Differential Comment Auto diff final PT 10.1 INR 1.0 APTT 20.3 L POC Sodium 142 Sodium POC Potassium 3.8 Potassium POC Chloride 104 Chloride Carbon Dioxide Anion Gap POC BUN 13 BUN Creatinine POC Creatinine 1.4 H Estimated GFR POC Glucose 111 H Random Glucose Calcium Blood Type Antibody Screen 03/26/18 03/27/18 03/27/18 13:25 04:40 04:40 WBC 6.6 RBC 3.72 L Hgb 11.8 L D POC Hgb (Calc) Hct 35.0 L POC Hct MCV 94.2 MCH 31.8 MCHC 33.8 RDW 13.9 Plt Count 199 D MPV 7.4 Neut % (Auto) 65.0 Lymph % (Auto) 24.1 [place] % (Auto) 8.8 H Eos % (Auto) 1.6 Baso % (Auto) 0.5 Neut # (Auto) 4.3 Lymph # (Auto) 1.6 [place] # (Auto) 0.6 Eos # (Auto) 0.1 Baso # (Auto) 0.0 WBC Differential . Differential Comment Auto diff final PT INR APTT POC Sodium Sodium 139 POC Potassium Potassium 3.7 POC Chloride Chloride 104 Carbon Dioxide 26.2 Anion Gap 9 POC BUN BUN 11 Creatinine 0.85 POC Creatinine Estimated GFR Greater than 89 POC Glucose Random Glucose 95 Calcium 7.5 L Blood Type A Positive Antibody Screen Negative - Imaging Impressions Wrist X-Ray 03/26/18 00:00 CONCLUSION: Comminuted fracture of both the distal radius and the ulna. Chest X-Ray 03/26/18 13:16 CONCLUSION: Negative examination. Pelvis X-Ray 03/26/18 13:16 CONCLUSION: Fractures of the right superior and inferior pubic ramus. There may be some widening the right SI joint compared to the left although not sure it is NOT secondary to rotation Abdomen/Pelvis CT 03/26/18 13:29 CONCLUSION: 1. Fracture of the superior and inferior pubic rami on the right. The superior fracture abuts the bladder but does not cause any obvious extravasation or active bleeding. Parasagittal fracture through the right ischium. The some mild thickening involving the right obturator internus muscle likely hemorrhage. Solid organs of the abdomen are unremarkable Chest CT 03/26/18 13:29 CONCLUSION: 1. Negative CT Chest with contrast. Head CT 03/26/18 13:29 CONCLUSION: 1. Negative CT Head non contrast. . Lumbar Spine CT 03/26/18 13:29 CONCLUSION: 1. Right posterior pelvic fracture. The lumbar spine is unremarkable. Thoracic Spine CT 03/26/18 13:29 CONCLUSION: 1. Negative CT Thoracic Spine with contrast. Cervical Spine CT 03/26/18 13:30 CONCLUSION: 1. Mild anterolisthesis of C3 on C4. No evidence of fracture or malalignment Wrist X-Ray 03/26/18 13:30 CONCLUSION: Fracture been reduced with now nearly anatomic alignment. Shoulder X-Ray 03/27/18 07:10 CONCLUSION: 1. No acute fracture or dislocation. 2. Mild degenerative changes involving the left acromioclavicular joint. Assessment and Plan - Plan [place]: Fell off a ladder from 15-20ft while cutting branches. No LOC. INJURIES: LEFT shoulder contusion LEFT radius/ulna fx RIGHT inferior and superior pubic rami fxs PMHx: ETOH abuse LEFT shoulder contusion, LEFT radius/ulna fx, RIGHT inferior and superior pubic rami fxs Orthopedics consulted Pubic rami fractures are non-op OR today for left wrist repair Pain control Bowel regimen OOB-PT and OT ordered WBAT RLE TIFFANIE Luo for platform walker Start Lovenox postop Plan of care discussed with patient at bedside. Collaborating Trauma surgeon agrees with plan. Case management consulted to assist with discharge planning. - Attending Attestation The exam, history, and the medical decision-making described in the above note were completed with the assistance of the mid-level provider. I reviewed and agree with the findings presented. I attest that I had a [id number] encounter with the patient on the same day, and personally performed and documented my assessment and findings in the medical record.
[2018-03-27] MEDS ORDERED: Aluminum/Magnesium/Simethacone Susp 30 ML UDC PO PRN (11:06)
[2018-03-27] MEDS ORDERED: Bisacodyl 10 MG Supp RECTAL PRN (11:06)
[2018-03-27] MEDS ORDERED: Post-op Orders (for Pharmacy) OTHER STA (11:06)
[2018-03-27] MEDS ORDERED: oxyCODONE/Acetaminophen 10/325 Tablet PO PRN ×2 (11:11)
--- NOTE | 2018-03-27 11:22 | P.OP ---
Preoperative Diagnosis: Left distal radius fracture, intra-articular three-part comminuted. Right sided multiple pelvic fractures. Postoperative Diagnosis: Same Date of procedure: 03/27/18 Procedure: Left distal radius open reduction and internal fixation 3 part intra-articular fracture Anesthesia: JESUS Surgeon: Con Segal MD Gl Accountant: LAYNE Christianson The surgical procedure was assisted by my Advanced Registered Nurse Practitioner. My MEDICAL ACCOUNTING CLERK presence was necessary throughout this case for the manipulation and positioning of the surgical extremity. My MEDICAL ACCOUNTING CLERK was assisting me throughout the duration of this procedure. The skill set of an Advance Registered Nurse Practitioner was medically necessary to complete this procedure. During the surgical case, the certified surgical technician was working at the back table and the Advance Registered Nurse Practitioner was directly assisting me. Operation and Findings: Tourniquet time: 22 minutes at 250 mmHg of pressure Estimated blood loss: 10 cc The patient received intravenous vancomycin and Ancef. After the appropriate anesthesia was administered, the patient's arm was prepped and draped in the usual sterile fashion. Local anesthetic was given, and the arm was exsanguinated. The tourniquet was raised to 250 mmHg of pressure. We made a standard incision over the volar aspect of the forearm. We then dissected through the flexor carpi radialis sub- sheath. The pronator quadratus was reflected. We now visualized the distal radius fracture very well. The fracture was anatomically reduced both visually and via fluoroscopy. We provisionally held the fracture reduced and then applied a Synthes wide precontoured distal radius plate into the appropriate position. The plate was secured to the distal radius first with the sliding screw hole. This was then followed by 5 locking screws distally and 2 proximally. We took final fluoroscopic imaging of the wrist. We found no intra-articular penetration of the screws. The patient had full range of motion of the wrist with no crepitus. The tourniquet was released and hemostasis was achieved. The patient had a 2+ radial pulse. We irrigated the incision thoroughly. We then closed skin with 2 -0 Vicryl followed by 3-0 nylon. The arm was dressed and a volar splint was applied. The postoperative plan is to start early range of motion of the wrist. The patient will be able to use a platform walker on the left side. He has pelvic fractures on the right side. We will also write a prescription for aspirin for DVT prophylaxis.
--- NOTE | 2018-03-27 11:28 | XR ---
EXAM DATE: 03/27/2018 11:17 AM EDT AGE/SEX: 48 years / Male INDICATIONS: Left wrist fracture, ORIF, done in operating room. CLINICAL DATA: This is the patient's initial encounter. Patient reports that signs and symptoms have been present for 1 day and indicates a pain score of Nonresponsive. MEDICAL/SURGICAL HISTORY: Non-responsive. Non-responsive. COMPARISON: No prior exams available for comparison. FINDINGS: Intraoperative films demonstrate the radius has been fixated with a volar fixation plate CONCLUSION: Distal radius has been fixated Electronically signed by: Jah Davis MD 03/27/2018 11:26 AM EDT
[2018-03-27] MEDS ORDERED: fentaNYL Citrate Inj 100 MCG/2 ML Ampul ONE (11:30)
[2018-03-27] MEDS ORDERED: Morphine Inj 4 MG/ML Vial ONE (11:30)
[2018-03-27] MEDS: Multivitamin/Minerals Therapeutic Tablet PO SCH (20:46)
[2018-03-27] MEDS ORDERED: Zolpidem Tartrate 5 MG Tablet PO PRN (21:00)
[2018-03-27] MEDS ORDERED: Benzocaine/Menthol 15 MG/3.6 MG SF Lozenge BUCCAL PRN (23:49)
[2018-03-28 04:52] LABS: Baso % (Auto) 0.1 % (0.0-2.0); Hematocrit 32.5 % (39.0-51.0); Hemoglobin 10.9 gm/dL (13.0-17.0); Lymph # (Auto) 0.6 th/mm3 (1.0-4.8); Lymph % (Auto) 6.6 % (9.0-44.0); Mean Corpuscular HGB Conc 33.6 % (32.0-36.0); Mean Corpuscular Hemoglobin 31.8 pg (27.0-34.0); Mean Corpuscular Volume 94.7 fL (80.0-100.0); Mean Platelet Volume 7.7 fL (7.0-11.0); Mono # (Auto) 0.8 th/mm3 (0.0-0.9); Mono % (Auto) 8.2 % (0.0-8.0); Neut # (Auto) 7.9 th/mm3 (1.8-7.7); Neut % (Auto) 85.1 % (16.0-70.0); Platelet Count 179 th/mm3 (150-450); Red Blood Count 3.43 mil/mm3 (4.50-5.90); Red Cell Distribution Width 13.6 % (11.6-17.2); White Blood Count 9.3 th/mm3 (4.0-11.0)
[2018-03-28 05:22] LABS: Calcium 7.7 mg/dL (8.5-10.1); Carbon Dioxide 28.4 meq/L (21.0-32.0); Potassium 4.2 meq/L (3.5-5.1)
[2018-03-28] MEDS: Morphine Inj 4 MG/ML Vial IV.PUSH PRN (06:38)
--- NOTE | 2018-03-28 07:32 | P.PNOP ---
Subjective Interval history: The patient is resting comfortably in bed with minimal pain to the left wrist. The patient's primary complaints are pain to the pelvic region, particularly right-sided. The patient had multiple questions regarding his condition. The patient is also reporting some limited range of motion and discomfort to the left shoulder. Physical Exam Vital signs: Vital Signs 03/27/18 08:00 03/27/18 11:23 03/27/18 11:45 Temperature 98.7 F 98.8 F Pulse Rate 75 73 71 Respiratory Rate 16 18 18 Blood Pressure 159/72 H 145/88 H 126/67 Pulse Oximetry 94 L 98 98 03/27/18 12:00 03/27/18 12:10 03/27/18 12:30 Temperature 98.8 F 97.7 F Pulse Rate 74 74 79 Respiratory Rate 18 18 16 Blood Pressure 128/65 128/65 135/75 Pulse Oximetry 98 95 92 L 03/27/18 12:32 03/27/18 16:00 03/27/18 17:38 Temperature 97.4 F L Pulse Rate 86 Respiratory Rate 16 Blood Pressure 121/61 Pulse Oximetry 95 96 96 03/27/18 20:00 03/28/18 00:00 Temperature 98.3 F 97.9 F Pulse Rate 72 70 Respiratory Rate 18 17 Blood Pressure 133/66 127/69 Pulse Oximetry 94 L 95 Intake & Output 03/27/18 03/28/18 03/28/18 18:59 06:59 18:59 Intake Total 3240 / 3240 1800 / 1800 Output Total 260 / 260 1500 / 1500 Balance 2980 / 2980 300 / 300 Weight 74.7 kg Intake: IV 1999 / 1999 1300 / 1300 LR 1000 mL Inj 1,000 ML @ 80 1000 / 1000 mls/hr IV.CONT .[id number] [facility] Rx# :[id number] NS Inj 1,000 ML @ 84 mls/hr IV. 1000 / 1000 CONT .[id number] MARVIN Rx#:[id number] LR 1000 mL Inj 1,000 ML @ 30 1000 / 1000 mls/hr IV.SIG .Q24H [facility] Rx#: [id number] Ancef Inj 1,000 MG In NS Inj 300 / 300 100 ML @ 200 mls/hr IV.SIG Q6H [facility] Rx#:[id number] Oral 240 / 240 500 / 500 Anesthesia Amount 1000 / 1000 Output: Urine 250 / 250 1500 / 1500 Estimated Blood Loss Other: Date of Last Bowel Movement 03/25/18 03/26/18 Narrative: The patient's dressing and splint are clean, dry, and intact. The patient has good sensation to light touch distally. Brisk cap refill 5. Minimal swelling to the hand and fingers. The patient has good range of motion of the left elbow but does have limited active range of motion of the left shoulder. Skin is intact about the left shoulder with some mild swelling. The patient's skin is dry and intact with some mild swelling to the right hip. EHL/TA/G are intact bilaterally. 2+ pedal pulses bilaterally. The patient's calves are soft and nontender. Sensation is intact to light touch distally bilaterally. The patient has limited active range of motion of the right leg due to pelvic pain with movement. Results - Labs CBC & Chem 7: 03/28/18 04:14 03/28/18 04:14 Laboratory Results - last 24 hr 03/28/18 03/28/18 04:14 04:14 WBC 9.3 RBC 3.43 L Hgb 10.9 L Hct 32.5 L MCV 94.7 MCH 31.8 MCHC 33.6 RDW 13.6 Plt Count 179 MPV 7.7 Neut % (Auto) 85.1 H Lymph % (Auto) 6.[address] [place] % (Auto) 8.2 H Eos % (Auto) 0.0 Baso % (Auto) 0.1 Neut # (Auto) 7.9 H Lymph # (Auto) 0.[address] [place] # (Auto) 0.8 Eos # (Auto) 0.0 Baso # (Auto) 0.0 WBC Differential . Differential Comment Auto diff final Sodium 138 Potassium 4.2 Chloride 103 Carbon Dioxide 28.4 Anion Gap 7 BUN 12 Creatinine 0.92 Estimated GFR 88 L Random Glucose 111 H Calcium 7.7 L - Imaging Impressions Wrist X-Ray 03/27/18 00:00 CONCLUSION: Distal radius has been fixated Shoulder X-Ray 03/27/18 07:10 CONCLUSION: 1. No acute fracture or dislocation. 2. Mild degenerative changes involving the left acromioclavicular joint. - Procedures Left wrist open reduction and internal fixation of distal radius fracture Assessment and Plan - Assessment and Plan POD #1: Left distal radius fracture with ORIF. Right sided superior and inferior pubic rami fractures with some displacement. Left shoulder contusion with possible exacerbation of underlying rotator cuff issues. 1. Maintain splint and dressing to the left upper extremity. Use sling as needed for support and comfort. 2. Ice to the pelvis and left wrist as needed. 3. Platform walker for ambulation. 4. The patient will be nonweightbearing with the left upper extremity and weightbearing as tolerated on the right lower extremity. 5. Stable per ortho for discharge when medically clear. 6. The patient will follow-up in the office with Dr. Segal or LAYNE Wiley in 1-2 weeks.
--- NOTE | 2018-03-28 07:54 | P.PN ---
Subjective Interval history: Max assist OOB with PT yesterday Complains of right hip pain with activity. Limited ROM with left shoulder d/t pain Not interested in inpatient rehab at discharge Physical Exam Vital signs: Vital Signs 03/27/18 08:00 03/27/18 11:23 03/27/18 11:45 Temperature 98.7 F 98.8 F Pulse Rate 75 73 71 Respiratory Rate 16 18 18 Blood Pressure 159/72 H 145/88 H 126/67 Pulse Oximetry 94 L 98 98 03/27/18 12:00 03/27/18 12:10 03/27/18 12:30 Temperature 98.8 F 97.7 F Pulse Rate 74 74 79 Respiratory Rate 18 18 16 Blood Pressure 128/65 128/65 135/75 Pulse Oximetry 98 95 92 L 03/27/18 12:32 03/27/18 16:00 03/27/18 17:38 Temperature 97.4 F L Pulse Rate 86 Respiratory Rate 16 Blood Pressure 121/61 Pulse Oximetry 95 96 96 03/27/18 20:00 03/28/18 00:00 03/28/18 07:36 Temperature 98.3 F 97.9 F 97.8 F Pulse Rate 72 70 64 Respiratory Rate 18 17 17 Blood Pressure 133/66 127/69 124/67 Pulse Oximetry 94 L 95 96 Intake & Output 03/27/18 03/28/18 03/28/18 18:59 06:59 18:59 Intake Total 3240 / 3240 1800 / 1800 Output Total 260 / 260 1500 / 1500 Balance 2980 / 2980 300 / 300 Weight 74.7 kg Intake: IV 1999 / 1999 1300 / 1300 LR 1000 mL Inj 1,000 ML @ 80 1000 / 1000 mls/hr IV.CONT .[id number] [facility] Rx# :[id number] NS Inj 1,000 ML @ 84 mls/hr IV. 1000 / 1000 CONT .[id number] MARVIN Rx#:[id number] LR 1000 mL Inj 1,000 ML @ 30 1000 / 1000 mls/hr IV.SIG .Q24H [facility] Rx#: [id number] Ancef Inj 1,000 MG In NS Inj 300 / 300 100 ML @ 200 mls/hr IV.SIG Q6H [facility] Rx#:[id number] Oral 240 / 240 500 / 500 Anesthesia Amount 1000 / 1000 Output: Urine 250 / 250 1500 / 1500 Estimated Blood Loss 10 / 10 Other: Date of Last Bowel Movement 03/25/18 03/26/18 Narrative: GENERAL: 48-year-old well-nourished, well developed male lying in bed. SKIN: Warm and dry. NECK: Trachea midline. No JVD. CARDIOVASCULAR: Regular rate and rhythm. RESPIRATORY: No accessory muscle use. Lungs clear to auscultation. Breath sounds equal bilaterally. GASTROINTESTINAL: Abdomen soft, non-tender, nondistended. + BS. MUSCULOSKELETAL: Extremities without cyanosis, or edema. Left arm splint in place. Limited ROM LUE. JAQUEZ, + perfused NEUROLOGICAL: Awake and alert. Normal speech. Results - Labs CBC & Chem 7: 03/28/18 04:14 03/28/18 04:14 Laboratory Results - last 24 hr 03/28/18 03/28/18 04:14 04:14 WBC 9.3 RBC 3.43 L Hgb 10.9 L Hct 32.5 L MCV 94.7 MCH 31.8 MCHC 33.6 RDW 13.6 Plt Count 179 MPV 7.7 Neut % (Auto) 85.1 H Lymph % (Auto) 6.6 L [place] % (Auto) 8.2 H Eos % (Auto) 0.0 Baso % (Auto) 0.1 Neut # (Auto) 7.9 H Lymph # (Auto) 0.6 L [place] # (Auto) 0.8 Eos # (Auto) 0.0 Baso # (Auto) 0.0 WBC Differential . Differential Comment Auto diff final Sodium 138 Potassium 4.2 Chloride 103 Carbon Dioxide 28.4 Anion Gap 7 BUN 12 Creatinine 0.92 Estimated GFR 88 L Random Glucose 111 H Calcium 7.7 L - Imaging Impressions Wrist X-Ray 03/27/18 00:00 CONCLUSION: Distal radius has been fixated Shoulder X-Ray 03/27/18 07:10 CONCLUSION: 1. No acute fracture or dislocation. 2. Mild degenerative changes involving the left acromioclavicular joint. - Procedures Left wrist open reduction and internal fixation of distal radius fracture Assessment and Plan - Plan [place]: Fell off a ladder from 15-20ft while cutting branches. No LOC. INJURIES: LEFT shoulder contusion LEFT radius/ulna fx RIGHT inferior and superior pubic rami fxs PMHx: ETOH abuse LEFT shoulder contusion, LEFT radius/ulna fx, RIGHT inferior and superior pubic rami fxs Orthopedics consulted Pubic rami fractures are non-op 03/27: Left distal radius open reduction and internal fixation 3 part intra- articular fracture Pain control- Added Neurontin and Motrin for better pain control Bowel regimen OOB-PT and OT ordered WBAT RLE TIFFANIE Luo for platform walker Lovenox, ASA Plan of care discussed with patient at bedside. Collaborating Trauma surgeon agrees with plan. Case management consulted to assist with discharge planning. Discussed with patient that he would benefit from some inpatient rehab. Patient declines and wants to go home at discharge with either home health care PT or outpatient PT which ever insurance will allow. Encouraged patient to improve ambulation with PT in order to be cleared to go home. Platform walker ordered. - Attending Attestation patient seen at bedside s/p fall, f/u ortho recs c/o pain working with pt await recs possible hameed The exam, history, and the medical decision-making described in the above note were completed with the assistance of the mid-level provider. I reviewed and agree with the findings presented. I attest that I had a [id number] encounter with the patient on the same day, and personally performed and documented my assessment and findings in the medical record.
[2018-03-28] MEDS: Senna/Docusate Sodium 8.6/50 MG Tablet PO SCH ×2 (08:14→21:48)
[2018-03-28] MEDS: Multivitamin/Minerals Therapeutic Tablet PO SCH ×2 (08:14→21:47)
[2018-03-28] MEDS: Aspirin 325 MG Tablet PO SCH (08:14)
[2018-03-28] MEDS: Famotidine 20 MG Tablet PO SCH ×2 (08:14→21:47)
[2018-03-28] MEDS: Gabapentin 300 MG Capsule PO SCH ×3 (09:14→17:32)
[2018-03-28] MEDS: Enoxaparin Inj 30 MG/0.3 ML Syringe SQ SCH ×2 (11:00→21:49)
[2018-03-29] MEDS: Multivitamin/Minerals Therapeutic Tablet PO SCH (09:13)
[2018-03-29] MEDS: Gabapentin 300 MG Capsule PO SCH ×3 (09:14→17:02)
[2018-03-29] MEDS: Senna/Docusate Sodium 8.6/50 MG Tablet PO SCH (09:14)
[2018-03-29] MEDS: Aspirin 325 MG Tablet PO SCH (09:14)
[2018-03-29] MEDS: Famotidine 20 MG Tablet PO SCH (09:15)
[2018-03-29 09:54] VITALS: RESP 18
[2018-03-29] MEDS: Enoxaparin Inj 30 MG/0.3 ML Syringe SQ SCH (10:30)
--- NOTE | 2018-03-29 15:40 | P.DS ---
Date of admission: 03/26/18 14:30 Primary care physician: UNKNOWN Brief History from admission: S/P Fall DS: Diagnosis - Discharge Diagnosis (1) Pelvis fracture, right Status: Acute (2) Shoulder contusion Status: Acute (3) Fracture of left distal radius Status: Acute DS: Medications - Discharge Medications Prescriptions: aspirin 325 mg PO DAILY 30 Days #30 tab oxycodone-acetaminophen [Percocet] 1 - 2 tab PO Q6HR #50 tab DS: Summary Hospital Course: [place]: Fell off a ladder from 15-20ft while cutting branches. No LOC. INJURIES: LEFT shoulder contusion LEFT radius/ulna fx RIGHT inferior and superior pubic rami fxs PMHx: ETOH abuse LEFT shoulder contusion, LEFT radius/ulna fx, RIGHT inferior and superior pubic rami fxs Orthopedics consulted, F/U outpatient Pubic rami fractures are non-op 03/27: Left distal radius open reduction and internal fixation 3 part intra- articular fracture Pain controlled Bowel regimen OOB-PT and OT ordered WBAT RLE NWB Puja for platform walker ASA 325mg QD F/U with PCP in 1 week Plan of care discussed with patient and RN at bedside. Collaborating Trauma surgeon agrees with plan. Case management consulted to assist with discharge planning. Patient is clear from trauma surgery standpoint to safely discharge home. Outpatient PT ordered. - Time Spent with Patient Total time spent providing and/or coordinating discharge services: Greater than 30 minutes - Quality: VTE Deep Vein Thrombosis/Pulmonary Embolism Present on Admission: No Exam Vital signs: Vital Signs 03/28/18 15:39 03/28/18 20:00 03/28/18 23:50 Temperature 97.8 F 98.5 F 98.1 F Pulse Rate 71 79 68 Respiratory Rate 17 18 16 Blood Pressure 157/77 H 132/70 111/60 Pulse Oximetry 99 98 97 03/29/18 04:00 03/29/18 08:00 03/29/18 12:00 Temperature 98.1 F 97.9 F 98.4 F Pulse Rate 62 70 72 Respiratory Rate 15 18 18 Blood Pressure 105/55 L 107/75 110/59 L Pulse Oximetry 97 100 100 Intake & Output 03/28/18 03/29/18 03/29/18 18:59 06:59 18:59 Intake Total 1200 / 1200 Output Total 300 / 300 650 / 650 Balance 900 / 900 -650 / -650 Intake: Oral 1200 / 1200 Output: Urine 300 / 300 650 / 650 Other: # Voids 2 Date of Last Bowel Movement 03/26/18 03/26/18 03/29/18 # Bowel Movements 0 Narrative: GENERAL: 48-year-old well-nourished, well developed male OOB in chair. SKIN: Warm and dry. NECK: Trachea midline. No JVD. CARDIOVASCULAR: Regular rate and rhythm. RESPIRATORY: No accessory muscle use. Lungs clear to auscultation. Breath sounds equal bilaterally. GASTROINTESTINAL: Abdomen soft, non-tender, nondistended. + BS. MUSCULOSKELETAL: Extremities without cyanosis, or edema. Left arm splint in place. Limited ROM LUE. JAQUEZ, + perfused NEUROLOGICAL: Awake and alert. Normal speech. Results Procedures completed during hospitalization: Left wrist open reduction and internal fixation of distal radius fracture - Impressions ITS Impressions Chest X-Ray 03/26/18 13:16 CONCLUSION: Negative examination. Pelvis X-Ray 03/26/18 13:16 CONCLUSION: Fractures of the right superior and inferior pubic ramus. There may be some widening the right SI joint compared to the left although not sure it is NOT secondary to rotation Abdomen/Pelvis CT 03/26/18 13:29 CONCLUSION: 1. Fracture of the superior and inferior pubic rami on the right. The superior fracture abuts the bladder but does not cause any obvious extravasation or active bleeding. Parasagittal fracture through the right ischium. The some mild thickening involving the right obturator internus muscle likely hemorrhage. Solid organs of the abdomen are unremarkable Chest CT 03/26/18 13:29 CONCLUSION: 1. Negative CT Chest with contrast. Head CT 03/26/18 13:29 CONCLUSION: 1. Negative CT Head non contrast. . Lumbar Spine CT 03/26/18 13:29 CONCLUSION: 1. Right posterior pelvic fracture. The lumbar spine is unremarkable. Thoracic Spine CT 03/26/18 13:29 CONCLUSION: 1. Negative CT Thoracic Spine with contrast. Cervical Spine CT 03/26/18 13:30 CONCLUSION: 1. Mild anterolisthesis of C3 on C4. No evidence of fracture or malalignment Wrist X-Ray 03/27/18 00:00 CONCLUSION: Distal radius has been fixated Shoulder X-Ray 03/27/18 07:10 CONCLUSION: 1. No acute fracture or dislocation. 2. Mild degenerative changes involving the left acromioclavicular joint. Discharge Plan - Discharge Disposition Patient Disposition: 01 Discharge Home - Discharge Condition Condition: Stable - Discharge Order Discharge Orders: Discharge Order (Routine); Ordered 03/29/18 Ordered By: Phill Sheffield - Physicians Team Primary Care Provider: UNKNOWN, Attending Provider: Scott Vizcarra Other Providers: Con Segal MD
[2018-03-29 16:52] VITALS: BP 141/84; PULSE 71; TEMP 97.8; O2SAT 97
== END 2018-03-29 17:31 | disposition home or self-care (01) ==
LOC: NEPI 13:15 → MERGE 14:30 → NEDA 14:30 → EDBD 14:30 → N06 16:54
PROVIDERS: ADMIT Surgery; ATTEND Surgery